=== PATIENT | female | born 1945 ===

== ENCOUNTER → 2019-06-01 | Outpatient (CLI) | payer MEDICARE, OTHER | END | disposition home or self-care (01) | LOC: LAB EV 08:40 → LAB SHORT 08:40 | DX: N76.0 Acute vaginitis (principal); R82.90 Unspecified abnormal findings in urine | CPT/HCPCS: 87070; 87086; 87205 ==

== ENCOUNTER 2020-01-11 11:44 | Day surgery (SDC) | payer MEDICARE, OTHER ==
[~2020-01-11] VITALS: Ht 170.2 cm; Wt 87.6 kg
[~2020-01-11 11:44] MED LIST: AMLO5 PO; ATOR10 PO; HYDCHL12.5 PO; LOSA50 PO
== END 2020-01-11 13:56 | disposition home or self-care (01) ==
LOC: ORSCSDS 11:44
PROVIDERS: Surgery
PROC: 0DBK8ZX Excision of Ascending Colon, Via Natural or Artificial Opening Endoscopic, Diagnostic (ICD-10-PCS; principal; 2020-01-11 13:00)
DX: R19.4 Change in bowel habit (principal); K62.5 Hemorrhage of anus and rectum; D12.2 Benign neoplasm of ascending colon; I10 Essential (primary) hypertension; E78.00 Pure hypercholesterolemia, unspecified; Z87.891 Personal history of nicotine dependence; Z79.899 Other long term (current) drug therapy
CPT/HCPCS: 88305; J0330; J0461; J2405; J2704; J7120

== ENCOUNTER → 2020-06-26 | Outpatient (CLI) | payer MEDICARE, OTHER | END | disposition home or self-care (01) | LOC: LAB SHORT 11:40 → PLD 11:40 | DX: D04.0 Carcinoma in situ of skin of lip (principal); L57.0 Actinic keratosis | CPT/HCPCS: 88305 ==

== ENCOUNTER → 2022-08-11 | Outpatient (CLI) | payer MEDICARE, OTHER | LOC: LAB 07:40 → LAB SHORT 07:40 | DX: D22.112 Melanocytic nevi of right lower eyelid, including canthus (principal) | CPT/HCPCS: 88305 ==